=== PATIENT | male | born 1945 | race Caucasian/White ===

== ENCOUNTER 2017-10-26 09:47 | Day surgery (SDC) | payer MEDICARE ==
[~2017-10-26 09:47] MED LIST: Metoclopramide 10 MG/2 ML SDV IV PRN; Sodium Chloride 0.9% 1,000 ML IV SCH; Sodium Chloride 0.9% 10 ML Syringe FLUSH PRN
[2017-10-26] MEDS ORDERED: Propofol 200 MG/20 ML SDV ONE (11:55)
[2017-10-26 12:39] VITALS: BP 135/74
--- NOTE | 2017-10-26 18:04 | OR ---
DATE OF OPERATION: 10/26/2017 PREOPERATIVE DIAGNOSIS: History of colon cancer. POSTOPERATIVE DIAGNOSIS: History of colon cancer. PROCEDURE: Colonoscopy with polypectomy. ESTIMATED BLOOD LOSS: Minimal. COMPLICATIONS: None. INDICATION FOR THE PROCEDURE: The patient is a 71-year-old male, who has a personal history of colorectal cancer. He had partial colectomy in 2010 believed to be on the left side and had repeat colonoscopy in 2013, which was unremarkable. He has not had any change in bowel habits since that time. He is here today for surveillance colonoscopy. DESCRIPTION OF PROCEDURE: Informed consent was obtained from the patient. The patient was taken to the operating room, placed on table in left lateral decubitus position. Monitored anesthesia care was administered. Digital rectal exam was normal. Colonoscope was then advanced through the anus directed toward the cecum. Cecum was reached and identified by appendiceal orifice and ileocecal valve. Colonoscope was then slowly withdrawn. The patient did have a small sessile polyp in ascending colon, which was removed by hot forceps polypectomy. Staple was noticed at approximately 30 cm as well at previous anastomotic site, which was well healed and patent. Retroflexion was performed in the rectum, which was also unremarkable. Colonoscope was then removed. The patient was brought to recovery room in good condition. The patient tolerated the procedure well. FINDINGS: Sessile polyp was removed. RECOMMENDATIONS: We will follow up on pathology. Would recommend repeat colonoscopy in 3 years due to a personal history of colorectal cancer and findings of benign appearing polyp today. KIKO/DIGNA /[id number]
== END 2017-10-26 13:55 | disposition home or self-care (01) ==
LOC: LB.SDS 09:47
PROVIDERS: ATTEND Surgery
DX: Z12.11 Encounter for screening for malignant neoplasm of colon (principal); D12.2 Benign neoplasm of ascending colon; J44.9 Chronic obstructive pulmonary disease, unspecified; I25.10 Atherosclerotic heart disease of native coronary artery without angina pectoris; I10 Essential (primary) hypertension; E11.9 Type 2 diabetes mellitus without complications; E78.5 Hyperlipidemia, unspecified; K21.9 Gastro-esophageal reflux disease without esophagitis; E03.9 Hypothyroidism, unspecified; Z85.038 Personal history of other malignant neoplasm of large intestine; Z88.8 Allergy status to other drugs, medicaments and biological substances
CPT/HCPCS: 82962; 88305; J2704; J7040

== ENCOUNTER 2018-02-21 18:29 | Emergency (ER) | payer MEDICARE ==
--- NOTE | 2018-02-21 19:12 | EDM.PDOC ---
ED HPI GENERAL MEDICAL PROBLEM - General Chief Complaint: General Stated Complaint: VOMITING Time Seen by Provider: 02/21/18 18:30 Source of Information: Reports: Patient History Limitations: Reports: No Limitations - History of Present Illness INITIAL COMMENTS - FREE TEXT/NARRATIVE: This is a 72yo M here for vomiting. He states he has been vomiting like this for the past 3 years and maybe longer. He has been to the ER a few times to get a fluid bolus and then improves. He denies any aggravating factors or inciting factors. He had an omlette and sandwich he made this am and last night he had a Oofda taco. He cannot correlate his vomiting to food. He denies any abdominal pain and denies any RUQ tenderness. He states he has a few episodes a year and maybe more and cannot recall the start of his vomiting and is likely over 3 years ago. He has not been worked up outpatient yet and sees Dr. Crain as his PCP. He denies any current distress but states he just threw up prior to coming to the ER. There is no blood but after the food there is some greenish fluid. Onset: Sudden Duration: Minutes:, Intermittent Severity: Mild Improves with: Reports: None Worsens with: Reports: None Associated Symptoms: Reports: Loss of Appetite, Nausea/Vomiting - Related Data Allergies Allergy/AdvReac Type Severity Reaction Status Date / Time procaine HCl [From Novocain] Allergy Nausea and Verified 02/21/18 19:40 Vomiting Home Meds: Home Meds Aspirin [Halfprin] 81 mg PO DAILY 02/20/16 [History] Furosemide 20 mg PO DAILY 02/20/16 [History] Metoprolol Tartrate 25 mg PO BID 02/20/16 [History] Omeprazole 20 mg PO DAILY 02/20/16 [History] Tamsulosin HCl 0.4 mg PO DAILY 02/20/16 [History] atorvaSTATin [Lipitor] 80 mg PO BEDTIME 02/20/16 [History] Fluticasone Propionate [Flovent HFA 220 MCG] 2 puff INH BID 10/26/17 [History] Umeclidinium [place] [Incruse Ellipta*] 1 inhalation INH DAILY 10/26/17 [History ] Past Medical History HEENT History: Reports: Hard of Hearing, Impaired Vision, Other (See Below) Other HEENT History: Blind right eye, wears glasses Cardiovascular History: Reports: Angina, Bypass, High Cholesterol, Hypertension , [place] Respiratory History: Reports: COPD Gastrointestinal History: Reports: Other (See Below) Other Gastrointestinal History: Hernia Genitourinary History: Reports: Prostate Disorder Musculoskeletal History: Reports: None Oncologic (Cancer) History: Reports: Colon - Infectious Disease History Infectious Disease History: Reports: Chicken Pox, Measles, Mumps - Past Surgical History HEENT Surgical History: Reports: Eye Surgery Cardiovascular Surgical History: Reports: Coronary Artery Bypass GI Surgical History: Reports: Appendectomy, Colonoscopy, Hernia, Abdominal Male Surgical History: Reports: None Musculoskeletal Surgical History: Reports: Shoulder Surgery Social & Family History - Family History Family Medical History: Noncontributory - Tobacco Use Smoking Status *Q: Former Smoker - Caffeine Use Caffeine Use: Reports: Coffee Other Caffeine Use: 3 cups a day ED ROS GENERAL - Review of Systems Review Of Systems: ROS reveals no pertinent complaints other than HPI. ED EXAM, GENERAL - Physical Exam Exam: See Below Exam Limited By: No Limitations General Appearance: Alert, WD/WN, No Apparent Distress Eye Exam: Bilateral Eye: EOMI, PERRL Ears: Normal External Exam Nose: Normal Inspection Throat/Mouth: Normal Inspection Head: Atraumatic, Normocephalic Neck: Normal Inspection Respiratory/Chest: No Respiratory Distress, Lungs Clear, Normal Breath Sounds Cardiovascular: Normal Peripheral Pulses, Regular Rate, Rhythm, No Edema Peripheral Pulses: 2+: Dorsalis Pedis (L), Dorsalis Pedis (R) GI/Abdominal: Tender (general from vomiting per patient), Abnormal Bowel Sounds (hyperactive) Extremities: Normal Inspection, Normal Capillary Refill Neurological: Alert, Oriented, CN II-XII Intact Psychiatric: Normal Affect, Normal Mood Skin Exam: Warm, Dry, Intact Course - Vital Signs Last Recorded V/S: Last Vital Signs Temp 37.5 C 02/21/18 19:58 Pulse 100 02/21/18 19:58 Resp 18 02/21/18 19:58 BP 117/59 L 02/21/18 19:58 Pulse Ox 92 L 02/21/18 19:58 - Orders/Labs/Meds Meds: Medications Discontinued Medications Generic Name Dose Route Start Last Admin Trade Name Freq PRN Reason Stop Dose Admin Sodium Chloride 1,000 mls @ 999 mls/hr 02/21/18 19:15 07/04/18 19:20 Normal Saline IV 999 mls/hr ASDIRECTED KEMAR Administration Metoclopramide HCl 10 mg 02/21/18 19:06 02/21/18 19:23 Reglan IV 02/21/18 19:07 10 mg ONETIME ONE Administration Metoclopramide HCl Confirm 02/21/18 19:28 02/21/18 19:32 Reglan Administered 02/21/18 19:29 Not Given Dose 10 mg .ROUTE .STK-MED ONE Ondansetron HCl 4 mg 02/21/18 19:06 02/21/18 19:22 Zofran IVPUSH 02/21/18 19:07 4 mg ONETIME ONE Administration Ondansetron HCl Confirm 02/21/18 19:27 02/21/18 19:32 Zofran Administered 02/21/18 19:28 Not Given Dose 4 mg .ROUTE .STK-MED ONE Ondansetron HCl 20 mg 02/21/18 20:30 Zofran Odt .ROUTE 02/21/18 20:31 .STK-MED ONE Sodium Chloride 10 ml 02/21/18 19:06 02/21/18 19:13 Saline Flush FLUSH 10 ml ASDIRECTED PRN Administration Keep Vein Open Departure - Departure Time of Disposition: 21:00 Disposition: Home, Self-Care 01 Condition: Good Clinical Impression: Dehydration, mild Vomiting Qualifiers: Vomiting type: unspecified Vomiting Intractability: non-intractable Nausea presence: with nausea Qualified Code(s): R11.2 - Nausea with vomiting, unspecified - Discharge Information Instructions: Ondansetron oral dissolving tablet Referrals: PCP,None [Primary Care Provider] - Forms: ED Department Discharge Additional Instructions: - Take Ondasetron ODT 4 mg every 4 hours when needed. - Take small frequent feedings. - Drink small amount of water at a time. - Avoid pop soda and minimize juices. - Recommendation for EGD scope and Stress Test. - Follow up with Dr. Crain when he comes. Call clinic and check when Dr Crain is coming
[2018-02-21] MEDS: Sodium Chloride 0.9% 10 ML Syringe FLUSH PRN (19:13)
[2018-02-21] MEDS: Sodium Chloride 0.9% 1,000 ML IV SCH (19:20)
[2018-02-21] MEDS: Ondansetron 4 MG/2 ML SDV IVPUSH ONE (19:22)
[2018-02-21] MEDS: Metoclopramide 10 MG/2 ML SDV IV ONE (19:23)
[2018-02-21] MEDS: Ondansetron 4 MG/2 ML SDV ONE (19:32)
[2018-02-21] MEDS: Metoclopramide 10 MG/2 ML SDV ONE (19:32)
[2018-02-21] MEDS ORDERED: Ondansetron 4 MG Tab.DIS ONE (20:30)
[2018-02-21 21:44] VITALS: BP 117/59
== END 2018-02-21 20:35 | disposition home or self-care (01) ==
LOC: LB.ED 18:29
DX: E86.0 Dehydration (principal); R11.2 Nausea with vomiting, unspecified; I10 Essential (primary) hypertension; I25.2 Old myocardial infarction; Z87.891 Personal history of nicotine dependence; Z88.8 Allergy status to other drugs, medicaments and biological substances; Z79.82 Long term (current) use of aspirin; Z79.899 Other long term (current) drug therapy
CPT/HCPCS: 96361; 96374; 96375; 99283-25; A9270-GY; J2405; J2765; J7030; J7050

== ENCOUNTER 2020-08-31 09:51 | Emergency (ER) | payer MEDICARE ==
[2020-08-31 10:12] VITALS: BP 142/83
--- NOTE | 2020-08-31 10:45 | EDM.PDOC ---
ED HPI GENERAL MEDICAL PROBLEM - General Chief Complaint: General Stated Complaint: HIGH GLUCOSE Time Seen by Provider: 08/31/20 10:30 Source of Information: Reports: Patient History Limitations: Reports: No Limitations - History of Present Illness INITIAL COMMENTS - FREE TEXT/NARRATIVE: patient presented to the ER with a c/o high blood sugar and dry mouth. He reports he is T2DM, and is metformin that he stopped for a year, and restarted a week ago after he started to have dry mouth and urinate more often. No dizziness or tingling. No vision problems. no fever or chills. no abd pain. He doesn't follow a diabetic diet. He is here because when he checked his BS levels at home, it was > 400. Duration: Week(s): (1) - Related Data Allergies Allergy/AdvReac Type Severity Reaction Status Date / Time procaine HCl [From Novocain] Allergy Nausea and Verified 08/31/20 10:06 Vomiting Home Meds: Home Meds Aspirin [Halfprin] 81 mg PO DAILY 02/20/16 [History] RX: Furosemide 40 mg PO DAILY 02/20/16 [History] RX: Metoprolol Tartrate 25 mg PO BID 02/20/16 [History] RX: Omeprazole 20 mg PO DAILY 02/20/16 [History] RX: Tamsulosin HCl 0.4 mg PO DAILY 02/20/16 [History] atorvaSTATin [Lipitor] 80 mg PO BEDTIME 02/20/16 [History] Fluticasone Propionate [Flovent HFA 220 MCG] 2 puff INH BID 10/26/17 [History] RX: Umeclidinium [place] [Incruse Ellipta*] 1 inhalation INH DAILY 10/26/17 [History] Past Medical History HEENT History: Reports: Hard of Hearing, Impaired Vision, Other (See Below) Other HEENT History: Blind right eye, wears glasses Cardiovascular History: Reports: Angina, Bypass, High Cholesterol, Hypertension, [place] Respiratory History: Reports: COPD Gastrointestinal History: Reports: Other (See Below) Other Gastrointestinal History: Hernia Genitourinary History: Reports: Prostate Disorder Musculoskeletal History: Reports: None Oncologic (Cancer) History: Reports: Colon - Infectious Disease History Infectious Disease History: Reports: Chicken Pox, Measles, Mumps - Past Surgical History HEENT Surgical History: Reports: Eye Surgery Cardiovascular Surgical History: Reports: Coronary Artery Bypass GI Surgical History: Reports: Appendectomy, Colonoscopy, Hernia, Abdominal Male Surgical History: Reports: None Musculoskeletal Surgical History: Reports: Shoulder Surgery Social & Family History - Family History Family Medical History: No Pertinent Family History - Caffeine Use Caffeine Use: Reports: Coffee Other Caffeine Use: 3 cups a day ED ROS GENERAL - Review of Systems Review Of Systems: See Below Constitutional: Reports: No Symptoms HEENT: Reports: No Symptoms Respiratory: Reports: No Symptoms Cardiovascular: Reports: No Symptoms GI/Abdominal: Reports: No Symptoms : Reports: Frequency Musculoskeletal: Reports: No Symptoms Skin: Reports: No Symptoms Neurological: Reports: No Symptoms ED EXAM, GENERAL - Physical Exam Exam: See Below Exam Limited By: No Limitations General Appearance: Alert, WD/WN, No Apparent Distress Eye Exam: Bilateral Eye: PERRL Head: Atraumatic, Normocephalic Respiratory/Chest: No Respiratory Distress, Lungs Clear, Normal Breath Sounds Cardiovascular: Normal Peripheral Pulses, Regular Rate, Rhythm, No Edema Extremities: Normal Inspection, Normal Range of Motion, Non-Tender Neurological: Alert, Oriented, Normal Cognition, No Motor/Sensory Deficits Course - Vital Signs Last Recorded V/S: Last Vital Signs Temp 37.1 C 08/31/20 11:39 Pulse 87 08/31/20 11:39 Resp 18 08/31/20 11:39 BP 142/83 H 08/31/20 10:09 Pulse Ox 93 L 08/31/20 11:39 - Orders/Labs/Meds Orders: Active Orders 24 hr Category Date Time Status POC Glucose [Blood Glucose Check, Bedside] [RC] ONETIME Care 08/31/20 12:25 Active POC Glucose [Blood Glucose Check, Bedside] [] ONETIME Care 08/31/20 13:12 Active Dextrose 50% in Water Med 08/31/20 11:44 Active 50 ml IVPUSH ASDIRECTED PRN Glucagon,Human Recombinant [GlucaGen] Med 08/31/20 11:44 Active 1 mg IM ASDIRECTED PRN Sodium Chloride 0.9% [Normal Saline] 1,000 ml Med 08/31/20 11:15 Active IV ASDIRECTED Medication Orders Dextrose/Water (Dextrose 50% In Water) 50 ml IVPUSH ASDIRECTED PRN PRN Reason: Hypoglycemia Glucagon (Glucagen) 1 mg IM ASDIRECTED PRN PRN Reason: Hypoglycemia Sodium Chloride (Normal Saline) 1,000 mls @ 999 mls/hr IV ASDIRECTED KEMAR Last Admin: 08/31/20 11:21 Dose: 999 mls/hr Documented by: IRIS Labs: Laboratory Tests 08/31/20 08/31/20 08/31/20 Range/Units 10:35 10:35 10:38 WBC 8.0 (4.0-11.0) K/uL RBC 4.60 (4.50-6.50) M/uL Hgb 15.1 (13.0-18.0) g/dL Hct 44.3 (40.0-54.0) % MCV 96 (76-96) fL MCH 32.8 H (27.0-32.0) pg MCHC 34.1 (31.0-35.0) g/dL RDW 13.6 (11.0-16.0) % Plt Count 121 L (150-400) K/uL MPV 11.3 H (6.0-10.0) fL Sodium 136 (136-145) mmol/L Potassium 4.2 (3.5-5.1) mmol/L Chloride 97 L (98-107) mmol/L Carbon Dioxide 28.3 (21.0-32.0) mmol/L Anion Gap 14.9 (5.0-15.0) mmol/L BUN 20 D (8-26) mg/dL Creatinine 1.23 (0.70-1.30) mg/dL Est Cr Clr Drug Dosing 56.96 mL/min Estimated GFR (MDRD) 57 L (>60) MLS/MIN BUN/Creatinine Ratio 16.3 (6-25) Glucose 446 H* D (74-100) mg/dL POC Glucose (74-110) mg/dL Hemoglobin A1c 11.7 H D (< 5.7) % Calcium 9.3 (8.5-10.1) mg/dL Total Bilirubin 1.4 H (0.0-1.0) mg/dL AST 39 H (15-37) U/L ALT 45 (12-78) U/L Alkaline Phosphatase 64 (46-116) U/L Total Protein 8.3 H (6.4-8.2) g/dL Albumin 3.9 (3.4-5.0) g/dL Globulin 4.4 H (2.2-4.2) g/dL Albumin/Globulin Ratio 0.9 (0.8-2.0) Urine Color Urine Appearance (CLEAR) Urine pH (5.0-8.0) Ur Specific [place] (1.003-1.030) Urine Protein (NEGATIVE) mg/dL Urine Glucose (UA) (NEGATIVE) mg/dL Urine Ketones (NEGATIVE) mg/dL Urine Occult Blood (NEGATIVE) Urine Nitrite (NEGATIVE) Urine Bilirubin (NEGATIVE) Urine Urobilinogen (0.2-1.0) E.U./dL Ur Leukocyte Esterase (NEGATIVE) Urine RBC /HPF Urine WBC Ur Epithelial Cells /HPF Urine Bacteria /HPF 08/31/20 08/31/20 Range/Units 10:50 11:31 WBC (4.0-11.0) K/uL RBC (4.50-6.50) M/uL Hgb (13.0-18.0) g/dL Hct (40.0-54.0) % MCV (76-96) fL MCH (27.0-32.0) pg MCHC (31.0-35.0) g/dL RDW (11.0-16.0) % Plt Count (150-400) K/uL MPV (6.0-10.0) fL Sodium (136-145) mmol/L Potassium (3.5-5.1) mmol/L Chloride (98-107) mmol/L Carbon Dioxide (21.0-32.0) mmol/L Anion Gap (5.0-15.0) mmol/L BUN (8-26) mg/dL Creatinine (0.70-1.30) mg/dL Est Cr Clr Drug Dosing mL/min Estimated GFR (MDRD) (>60) MLS/MIN BUN/Creatinine Ratio (6-25) Glucose (74-100) mg/dL POC Glucose 388 H (74-110) mg/dL Hemoglobin A1c (< 5.7) % Calcium (8.5-10.1) mg/dL Total Bilirubin (0.0-1.0) mg/dL AST (15-37) U/L ALT (12-78) U/L Alkaline Phosphatase (46-116) U/L Total Protein (6.4-8.2) g/dL Albumin (3.4-5.0) g/dL Globulin (2.2-4.2) g/dL Albumin/Globulin Ratio (0.8-2.0) Urine Color Yellow Urine Appearance Clear (CLEAR) Urine pH 5.0 (5.0-8.0) Ur Specific [place] 1.020 (1.003-1.030) Urine Protein Trace H (NEGATIVE) mg/dL Urine Glucose (UA) 500 H (NEGATIVE) mg/dL Urine Ketones 15 H (NEGATIVE) mg/dL Urine Occult Blood Trace-lysed H (NEGATIVE) Urine Nitrite Negative (NEGATIVE) Urine Bilirubin Negative (NEGATIVE) Urine Urobilinogen 0.2 (0.2-1.0) E.U./dL Ur Leukocyte Esterase Negative (NEGATIVE) Urine RBC 0-5 H /HPF Urine WBC Not Reportable Ur Epithelial Cells Few /HPF Urine Bacteria Rare /HPF Meds: Medications Generic Name Dose Route Start Last Admin Trade Name Micaela PRN Reason Stop Dose Admin Dextrose/Water 50 ml 08/31/20 11:44 Dextrose 50% In Water IVPUSH ASDIRECTED PRN Hypoglycemia Glucagon 1 mg 08/31/20 11:44 Glucagen IM ASDIRECTED PRN Hypoglycemia Sodium Chloride 1,000 mls @ 999 mls/hr 08/31/20 11:15 08/31/20 11:21 Normal Saline IV 999 mls/hr ASDIRECTED KEMAR Administration Discontinued Medications Generic Name Dose Route Start Last Admin Trade Name Micaela PRN Reason Stop Dose Admin Insulin Human Regular 3 unit 08/31/20 11:44 08/31/20 11:50 Humulin R IV 08/31/20 11:45 3 units ONETIME ONE Administration Insulin Human Regular 5 unit 08/31/20 12:34 08/31/20 12:37 Humulin R IV 08/31/20 12:35 5 units ONETIME ONE Administration - Re-Assessments/Exams Free Text/Narrative Re-Assessment/Exam: normal vitals upon arrival labs were ordered - significant for hyperglycemia to 480, HgbA1C >11. Normal Cr but decreased GFR. UA ++ Glucose and protein. IVF bolus was started. Insulin-regular- 3 units then 5 units were given. BS down to 340. Patient reports feeling much better. no thirst and no dizziness. Departure - Departure Time of Disposition: 13:34 Disposition: Home, Self-Care 01 Condition: Good Clinical Impression: Uncontrolled type 2 diabetes mellitus with hyperglycemia, Non-compliance with treatment, Obesity (BMI 30-39.9) - Discharge Information *PRESCRIPTION DRUG MONITORING PROGRAM REVIEWED*: Not Applicable *COPY OF PRESCRIPTION DRUG MONITORING REPORT IN PATIENT EFRAIN: Not Applicable Referrals: Mahad Monroy MD [Primary Care Provider] - Forms: ED Department Discharge Sepsis Event Note (ED) - Evaluation Sepsis Screening Result: No Definite Risk - Focused Exam Vital Signs: Vital Signs Temp Pulse Resp BP Pulse Ox 08/31/20 11:39 37.1 C 87 18 93 L 08/31/20 10:09 36.2 C 96 22 H 142/83 H 93 L - Problem List & Annotations (1) Uncontrolled type 2 diabetes mellitus with hyperglycemia SNOMED Code(s): 629775412, 15788237, 092103938 Code(s): E11.65 - TYPE 2 DIABETES MELLITUS WITH HYPERGLYCEMIA Status: Acute Priority: Medium Current Visit: Yes (2) Non-compliance with treatment SNOMED Code(s): 1994550 Code(s): Z91.19 - PATIENT'S NONCOMPLIANCE W OTH MEDICAL TREATMENT AND REGIMEN Status: Acute Priority: Medium Current Visit: Yes (3) Obesity (BMI 30-39.9) SNOMED Code(s): 689307993, 999888677 Code(s): E66.9 - OBESITY, UNSPECIFIED Status: Chronic Priority: Medium Current Visit: Yes - Problem List Review Problem List Initiated/Reviewed/Updated: Yes - My Orders Last 24 Hours: My Active Orders 08/31/20 11:15 Sodium Chloride 0.9% [Normal Saline] 1,000 ml IV ASDIRECTED 08/31/20 11:44 Dextrose 50% in Water 50 ml IVPUSH ASDIRECTED PRN Glucagon,Human Recombinant [GlucaGen] 1 mg IM ASDIRECTED PRN 08/31/20 12:25 POC Glucose [Blood Glucose Check, Bedside] [RC] ONETIME 08/31/20 13:12 POC Glucose [Blood Glucose Check, Bedside] [RC] ONETIME - Assessment/Plan Last 24 Hours: My Active Orders 08/31/20 11:15 Sodium Chloride 0.9% [Normal Saline] 1,000 ml IV ASDIRECTED 08/31/20 11:44 Dextrose 50% in Water 50 ml IVPUSH ASDIRECTED PRN Glucagon,Human Recombinant [GlucaGen] 1 mg IM ASDIRECTED PRN 08/31/20 12:25 POC Glucose [Blood Glucose Check, Bedside] [RC] ONETIME 08/31/20 13:12 POC Glucose [Blood Glucose Check, Bedside] [RC] ONETIME Plan: - discussed with the patient the followin- increase metformin to 500mg PO BID 2- decreased Carbs intake - was scheduled with hospital educator Lois here in the clinic - will follow up with her tomorrow 3- follow up with PCP on Monday for re-eval 4- blood sugar before and after meals - increase fluids intake - return to the ER if blood sugar reading more then 400 or any other concerns
[2020-08-31 10:56] LABS: HEMOGLOBIN A1C 11.7 % (< 5.7)
[2020-08-31] MEDS ORDERED: Sodium Chloride 0.9% 1,000 ML IV SCH (11:15)
[2020-08-31 11:41] VITALS: PULSE 87
[2020-08-31] MEDS ORDERED: Insulin Regular, Human 100 Units/ML 3 ML Vial IV ONE ×2 (11:44→12:34)
[2020-08-31] MEDS ORDERED: 50% Dextrose in Water 50 ML Syringe IVPUSH PRN (11:44)
[2020-08-31] MEDS ORDERED: Glucagon,Human Recombinant 1 MG Vial IM PRN (11:44)
== END 2020-08-31 13:55 | disposition home or self-care (01) ==
LOC: LB.ED 09:54
DX: E11.65 Type 2 diabetes mellitus with hyperglycemia (principal); E78.00 Pure hypercholesterolemia, unspecified; I10 Essential (primary) hypertension; I25.2 Old myocardial infarction; J44.9 Chronic obstructive pulmonary disease, unspecified; N42.9 Disorder of prostate, unspecified; Z91.14 Patient's other noncompliance with medication regimen; E66.9 Obesity, unspecified; Z68.37 Body mass index [BMI] 37.0-37.9, adult; Z88.4 Allergy status to anesthetic agent; Z79.82 Long term (current) use of aspirin; Z79.899 Other long term (current) drug therapy
CPT/HCPCS: 36415; 80053; 81001; 82962; 83036; 85027; 99284; J7030

== ENCOUNTER 2020-09-02 10:36 | Emergency (ER) | payer MEDICARE ==
[2020-09-02 10:51] VITALS: BP 123/78; PULSE 80
[2020-09-02] MEDS ORDERED: Sodium Chloride 0.9% 1,000 ML IV ONE (10:59)
--- NOTE | 2020-09-02 14:21 | ER ---
HISTORY OF PRESENT ILLNESS: A 74-year-old male who comes in with concerns about his blood sugar being high. He stated that he had a reading of over 500 at home this morning. He was recently seen on Monday here in the emergency room. His blood sugars were high. He was given IV fluids and a little bit of insulin. His Glucophage was increased from 500 mg daily to b.i.d. dosing just 3 days ago. The patient does have a followup appointment with Dr. Monroy tomorrow in the clinic and he also has been told he needs diabetic teaching. The patient tells me he has not been doing a very good job of taking care of his diabetes. Over the holidays, he pretty much ate what he wanted to and he has not been taking his diabetic pill as directed. The patient tells me his mouth is dry, otherwise he feels okay. He denies any problems with chest pain, shortness of breath, or abdominal pain. He has not had any problems with nausea or vomiting. OBJECTIVE: GENERAL APPEARANCE: The patient is awake and alert, pleasant and talkative. He is telling jokes. VITAL SIGNS: Reviewed. Blood pressure 123/78. He is afebrile. O2 sats 93% on room air. Pulse is 80. LUNGS: Clear. CARDIAC: Heart sounds distinct without murmurs. ABDOMEN: Protuberant, nontender to palpation. Bowel sounds are present. SKIN: Warm and dry. INITIAL TREATMENT PLAN: An IV was started. The patient will be given a liter of normal saline in a bolus form. LABORATORY DATA: Today include a CBC which is unremarkable. Comprehensive metabolic panel shows a blood sugar of 407, sodium 134, otherwise basically normal. The patient was monitored here while he was given a liter of fluids. A bedside blood sugar was taken after this and it dropped down into the 390 range. DIAGNOSIS: Type 2 diabetes with poor control. TREATMENT PLAN: I advised the patient to continue with his metformin at this current dose until he sees Dr. Monroy tomorrow. I feel his medications will be adjusted and he needs to have diabetic teaching. The patient needs to follow the direction of his primary care provider closely and his condition will improve. His condition is stable today. The patient has no further questions. CRS/MODL /[id number] EDIN
== END 2020-09-02 12:26 | disposition home or self-care (01) ==
LOC: LB.ED 10:36
DX: E11.65 Type 2 diabetes mellitus with hyperglycemia (principal)
CPT/HCPCS: 36415; 80053; 82962; 85025; 99284; J7030

== ENCOUNTER 2020-09-06 18:31 | Emergency (ER) | payer MEDICARE ==
[2020-09-06 19:06] VITALS: BP 113/75
[2020-09-06 19:45] VITALS: PULSE 87
[2020-09-06] MEDS ORDERED: Sodium Chloride 0.9% 50 ML SDV FLUSH ONE (20:06)
[2020-09-06] MEDS ORDERED: Iopamidol 612 MG/ML 100 ML Bottle IV SCH (20:15)
--- NOTE | 2020-09-06 21:03 | EDM.PDOC ---
ED HPI GENERAL MEDICAL PROBLEM - General Chief Complaint: General Stated Complaint: SWOLLEN AREA ON FACE Time Seen by Provider: 09/06/20 20:35 Source of Information: Reports: Patient History Limitations: Reports: No Limitations - History of Present Illness Onset: Other (1 day ago) Duration: Day(s):, Getting Worse Location: Reports: Head, Face, Other (Buccal) Quality: Reports: Ache Severity: Mild Improves with: Reports: None Worsens with: Reports: None Associated Symptoms: Reports: No Other Symptoms Treatments DIRECTOR OF BILLING: Reports: Other (see below) (antibiotics given in ED. ) Right Cheek Pain Score (Numeric/FACES): 2 - Related Data Allergies Allergy/AdvReac Type Severity Reaction Status Date / Time procaine HCl [From Novocain] Allergy Nausea and Verified 09/06/20 18:57 Vomiting Home Meds: Home Meds Aspirin [Halfprin] 81 mg PO DAILY 02/20/16 [History] Furosemide 40 mg PO DAILY 02/20/16 [History] Metoprolol Tartrate 25 mg PO BID 02/20/16 [History] Omeprazole 20 mg PO DAILY 02/20/16 [History] Tamsulosin HCl 0.4 mg PO DAILY 02/20/16 [History] atorvaSTATin [Lipitor] 80 mg PO BEDTIME 02/20/16 [History] Fluticasone Propionate [Flovent HFA 220 MCG] 2 puff INH BID 10/26/17 [History] Umeclidinium [place] [Incruse Ellipta*] 1 inhalation INH DAILY 10/26/17 [History] Formoterol/Mometasone [Dulera 100 MCG/5 MCG] 2 puff PO ASDIRECTED PRN 09/02/20 [History] metFORMIN [Glucophage] 500 mg PO BID 09/02/20 [History] Past Medical History HEENT History: Reports: Hard of Hearing, Impaired Vision, Other (See Below) Other HEENT History: Blind right eye, wears glasses Cardiovascular History: Reports: Angina, Bypass, Heart Failure, High Cholesterol, Hypertension, ID Respiratory History: Reports: COPD Gastrointestinal History: Reports: Other (See Below) Other Gastrointestinal History: Hernia Genitourinary History: Reports: Prostate Disorder Musculoskeletal History: Reports: None Endocrine/Metabolic History: Reports: Diabetes, Type II, Hyperthyroidism Oncologic (Cancer) History: Reports: Colon Other Oncologic History: Part of colon removed - Infectious Disease History Infectious Disease History: Reports: Chicken Pox, Measles, Mumps - Past Surgical History HEENT Surgical History: Reports: Eye Surgery Cardiovascular Surgical History: Reports: Coronary Artery Bypass GI Surgical History: Reports: Appendectomy, Colonoscopy, Hernia, Abdominal, Other (See Below) Other GI Surgeries/Procedures: part of colon surgically removed. Hx Colon Cancer Male Surgical History: Reports: None Musculoskeletal Surgical History: Reports: Shoulder Surgery Other Musculoskeletal Surgeries/Procedures:: using walker at home at times. fell a couple weeks ago at home Social & Family History - Family History Family Medical History: No Pertinent Family History - Tobacco Use Tobacco Use Status *Q: Former Tobacco User Years of Tobacco use: 45 Packs/Tins Daily: 1.5 Used Tobacco, but Quit: Yes Month/Year Tobacco Last Used: 2003 - Caffeine Use Caffeine Use: Reports: Coffee Other Caffeine Use: 3 cups a day - Recreational Drug Use Recreational Drug Use: No ED ROS GENERAL - Review of Systems Review Of Systems: Comprehensive ROS is negative, except as noted in HPI. Skin: Reports: Lumps, Other (swelling right buccal area mild skin erythema. ) ED EXAM, GENERAL - Physical Exam Exam: See Below Exam Limited By: No Limitations General Appearance: Alert, WD/WN, No Apparent Distress Eye Exam: Bilateral Eye: PERRL Ears: Normal External Exam Nose: Normal Inspection, Normal Mucosa Throat/Mouth: Other (swelling and erythema right cheek) Head: Atraumatic, Normocephalic Neck: Supple, Other (swelling Right neck) Respiratory/Chest: No Respiratory Distress Cardiovascular: Normal Peripheral Pulses, Regular Rate, Rhythm GI/Abdominal: Normal Bowel Sounds, Soft, Non-Tender (Male) Exam: Deferred Rectal (Males) Exam: Deferred Back Exam: Normal Inspection Extremities: Normal Inspection Neurological: Alert, Oriented, CN II-XII Intact Psychiatric: Normal Affect, Normal Mood Skin Exam: Warm, Dry, Intact (parotid gland inflammation ) Course - Vital Signs Last Recorded V/S: Last Vital Signs Temp 36.7 C 09/06/20 19:19 Pulse 87 09/06/20 19:44 Resp 16 09/06/20 19:44 BP 113/75 09/06/20 19:19 Pulse Ox 95 09/06/20 19:44 - Orders/Labs/Meds Orders: Active Orders 24 hr Category Date Time Status Head wo Cont [CT] Stat Exams 09/06/20 18:45 Taken Soft Tissue Neck w Cont [CT] Stat Exams 09/06/20 18:45 Taken Iopamidol [Isovue-300 (61%)] Med 09/06/20 20:15 Active 100 ml IV . DIRECTED Medication Orders Iopamidol (Isovue-300 (61%)) 100 ml IV . DIRECTED KEMAR Labs: Laboratory Tests 09/06/20 09/06/20 Range/Units 18:47 18:47 WBC 10.0 D (4.0-11.0) K/uL RBC 4.33 L (4.50-6.50) M/uL Hgb 14.3 (13.0-18.0) g/dL Hct 42.0 (40.0-54.0) % MCV 97 H (76-96) fL MCH 33.0 H (27.0-32.0) pg MCHC 34.0 (31.0-35.0) g/dL RDW 13.9 (11.0-16.0) % Plt Count 136 L (150-400) K/uL MPV 11.3 H (6.0-10.0) fL Neut % (Auto) 72.2 H (45.0-70.0) % Lymph % (Auto) 16.9 L (20.0-40.0) % [place] % (Auto) 9.1 (3.0-10.0) % Eos % (Auto) 1.3 (1.0-5.0) % Baso % (Auto) 0.5 (0.0-0.5) % Neut # (Auto) 7.19 (2.00-7.50) K/uL Lymph # (Auto) 1.68 (1.50-4.00) K/uL [place] # (Auto) 0.91 H (0.20-0.80) K/uL Eos # (Auto) 0.13 (0.04-0.40) K/uL Baso # (Auto) 0.05 (0.02-0.10) K/uL Sodium 138 (136-145) mmol/L Potassium 3.6 (3.5-5.1) mmol/L Chloride 101 (98-107) mmol/L Carbon Dioxide 25.4 (21.0-32.0) mmol/L Anion Gap 15.2 H (5.0-15.0) mmol/L BUN 9 D (8-26) mg/dL Creatinine 1.11 (0.70-1.30) mg/dL Est Cr Clr Drug Dosing TNP Estimated GFR (MDRD) > 60 (>60) MLS/MIN BUN/Creatinine Ratio 8.1 (6-25) Glucose 196 H D (74-100) mg/dL Calcium 8.8 (8.5-10.1) mg/dL Total Bilirubin 1.0 (0.0-1.0) mg/dL AST 44 H (15-37) U/L ALT 65 (12-78) U/L Alkaline Phosphatase 53 (46-116) U/L Total Protein 7.8 (6.4-8.2) g/dL Albumin 3.7 (3.4-5.0) g/dL Globulin 4.1 (2.2-4.2) g/dL Albumin/Globulin Ratio 0.9 (0.8-2.0) Meds: Medications Generic Name Dose Route Start Last Admin Trade Name Freq PRN Reason Stop Dose Admin Iopamidol 100 ml 09/06/20 20:15 Isovue-300 (61%) IV . DIRECTED KEMAR Discontinued Medications Generic Name Dose Route Start Last Admin Trade Name Freq PRN Reason Stop Dose Admin Cefuroxime Axetil Confirm 09/06/20 20:41 Ceftin Administered 09/06/20 20:42 Dose 1,500 mg .ROUTE .STK-MED ONE Sodium Chloride 50 ml 09/06/20 20:06 Normal Saline FLUSH 09/06/20 20:07 ONETIME ONE Departure - Departure Time of Disposition: 09:10 Disposition: Home, Self-Care 01 Condition: Good Clinical Impression: Sialadenitis, Cellulitis - Discharge Information *PRESCRIPTION DRUG MONITORING PROGRAM REVIEWED*: Not Applicable *COPY OF PRESCRIPTION DRUG MONITORING REPORT IN PATIENT EFRAIN: Not Applicable Instructions: Salivary Gland Infection, Parotitis, [place] Referrals: PCP,None [Primary Care Provider] - Additional Instructions: Follow up with Dr. Mnoroy next week. Take all medication as prescribed. Oral surgery consult recommended. Return to ED or see PCP for new or worsening symptoms. Sepsis Event Note (ED) - Evaluation Sepsis Screening Result: No Definite Risk - Focused Exam Vital Signs: Vital Signs Temp Pulse Resp BP Pulse Ox 09/06/20 19:44 87 16 95 09/06/20 19:19 36.7 C 90 20 113/75 90 L 09/06/20 18:31 36.7 C 90 20 113/75 90 L - My Orders Last 24 Hours: My Active Orders 09/06/20 18:45 Head wo Cont [CT] Stat Soft Tissue Neck w Cont [CT] Stat 09/06/20 20:15 Iopamidol [Isovue-300 (61%)] 100 ml IV . DIRECTED - Assessment/Plan Last 24 Hours: My Active Orders 09/06/20 18:45 Head wo Cont [CT] Stat Soft Tissue Neck w Cont [CT] Stat 09/06/20 20:15 Iopamidol [Isovue-300 (61%)] 100 ml IV . DIRECTED
--- NOTE | 2020-09-08 09:29 | CT ---
Date of Service: 09/06/20 Clinical Data: Rt neck mass UNENHANCED BRAIN CT: Multislice acquisition through the brain without IV contrast was performed. No priors. There is diffuse cerebral atrophy. No masses or mass effect. No intracranial hemorrhage. No evidence of acute or subacute infarct. No osseous abnormalities. IMPRESSION: No acute intracranial abnormalities. [id number] [facility]
--- NOTE | 2020-09-08 09:50 | CT ---
Date of Service: 09/06/20 Clinical Data: Rt neck mass ENHANCED NECK CT: Multislice axial acquisition from the orbits down to the T1 level were obtained. Axial images and sagittal and coronal reformations are reviewed. The right parotid gland is abnormal. It is swollen compared to the left parotid gland. There is also mild adjacent fat stranding. There is a 3 mm calcification noted within the right parotid gland anteriorly. This may be within the parotid duct. The left parotid gland appears normal. The submandibular glands are symmetric and appear normal. The thyroid gland is not optimally seen because of motion. There is a low-density lesion in the left lobe of the thyroid. Thyroid ultrasound is recommended. The visualized globes and orbital contents appear normal. The paranasal sinuses are clear. No air-fluid levels. There is mild soft tissue fullness of both palatine tonsils. There are bilateral tonsilloliths. No adenopathy. The vascular structures demonstrate calcification in the region of the carotid bulbs bilaterally. The pharynx, larynx, and airway are unremarkable. There is degenerative disk disease throughout the cervical spine. There are multiple missing teeth. There are multiple dental caries and periapical lucencies. No other significant findings. IMPRESSION: 1. Right-sided parotid sialoadenitis with a 3 mm parotid calculi. No evidence of abscess . 2. Other findings as discussed above. [id number] [facility]
== END 2020-09-06 21:15 | disposition home or self-care (01) ==
LOC: LB.ED 18:31
DX: K11.20 Sialoadenitis, unspecified (principal); L03.211 Cellulitis of face; I11.0 Hypertensive heart disease with heart failure; I50.9 Heart failure, unspecified; E78.00 Pure hypercholesterolemia, unspecified; I25.2 Old myocardial infarction; E11.9 Type 2 diabetes mellitus without complications; Z79.84 Long term (current) use of oral hypoglycemic drugs; Z87.891 Personal history of nicotine dependence; N42.9 Disorder of prostate, unspecified; Z88.4 Allergy status to anesthetic agent; Z79.82 Long term (current) use of aspirin; Z79.899 Other long term (current) drug therapy; Z95.1 Presence of aortocoronary bypass graft
CPT/HCPCS: 36415; 70450; 70491; 80053; 85025; 99284-25; A9270-GY

== ENCOUNTER 2023-05-07 12:31 | Emergency (ER) | payer MEDICARE ==
[2023-05-07] MEDS: Ketorolac 60 MG/2 ML SDV IM ONE (12:59)
[2023-05-07 13:14] VITALS: BP 116/68; PULSE 95
[2023-05-07] MEDS ORDERED: Methocarbamol 500 MG Tab ONE (13:30)
== END 2023-05-07 13:36 | disposition home or self-care (01) ==
LOC: LB.ED 12:31
DX: S39.012A Strain of muscle, fascia and tendon of lower back, initial encounter (principal); J44.9 Chronic obstructive pulmonary disease, unspecified; E11.9 Type 2 diabetes mellitus without complications; I11.0 Hypertensive heart disease with heart failure; I50.9 Heart failure, unspecified; E78.00 Pure hypercholesterolemia, unspecified; E05.90 Thyrotoxicosis, unspecified without thyrotoxic crisis or storm; Z88.5 Allergy status to narcotic agent; I25.2 Old myocardial infarction; Z79.82 Long term (current) use of aspirin; Z79.84 Long term (current) use of oral hypoglycemic drugs; Z79.899 Other long term (current) drug therapy; W18.30XA Fall on same level, unspecified, initial encounter
CPT/HCPCS: 72100; 96372; 99283; A9270; J1885